=== PATIENT | female | born 1940 | race Hispanic/Latino ===

== ENCOUNTER 2019-01-26 17:02 | Emergency (ER) | payer MEDICARE ==
[~2019-01-26] VITALS: Ht 152.4 cm; Wt 63.0 kg
[~2019-01-26 17:02] MED LIST: ASPIRIN81 MG PO; DIAZEPAM5 MG PO; DIAZEPAM5 MG/1 M2 PO; HYDROCHLOROTH12.5 M1 PO; LEVOTHYROXINE75 MCG PO; OMEPRAZOLE40 MG PO; SIMVASTATIN40 MG PO
[2019-01-26] MEDS ORDERED: IOPAMIDOL 370 MG/ML 200 ML INFUS..BTL INJ ONE (17:47)
--- NOTE | 2019-01-26 18:52 | Diagnostic Imaging Report ---
History: Neck mass Comparison studies: None Technique: Axial images were obtained from the skull base to the thoracic inlet. Coronal and sagittal images reconstructed from the axial data. Intravenous contrast: None Dose modulation, iterative reconstruction, and/or weight based adjustment of the mA/kV was utilized to reduce the radiation dose to as low as reasonably achievable. Findings: Evaluation of the neck is limited due to the absence of intravenous contrast. In spite of this limitation, Soft tissues: No abnormalities. Lymph nodes: No radiographically significant adenopathy. Vessels: Cannot evaluate. Atherosclerotic calcifications of the aortic arch Glands (thyroid, parotid and submandibular): Normal in size and symmetric. No masses. Orbits: No abnormalities. Paranasal sinuses: Clear. Temporal bones: No abnormalities. Skull base and facial bones: Intact. Cervical spine: Multilevel degenerative foraminal narrowing, moderate right at C4-5; moderate bilateral at C5-6;. No other significant (moderate or severe) canal stenosis or foraminal narrowing. IMPRESSION: 1. Limited study due to lack of IV contrast. No sizable neck masses. 2. No acute neck abnormality Signed by: DR Jovan Coronado M.D. on 01/26/2019 6:49 PM
--- NOTE | 2019-01-26 19:39 | Diagnostic Imaging Report ---
History: Neck mass Comparison studies: None Technique: Axial, coronal and sagittal images from the skull base to the thoracic inlet. Coronal and sagittal images reconstructed from the axial data. Intravenous contrast: 100 cc of Isovue 300. Dose modulation, iterative reconstruction, and/or weight based adjustment of the mA/kV was utilized to reduce the radiation dose to as low as reasonably achievable. Findings: Soft tissues: No abnormalities. Masses: None. Lymph nodes: No radiographically significant adenopathy. Vessels: Arteries and veins are patent. Atherosclerotic calcifications of the aortic arch. Glands (thyroid, parotid and submandibular): Normal in size and symmetric. No masses. Orbits: No abnormalities. Paranasal sinuses: Clear. Temporal bones: No abnormalities. Skull base and facial bones: Intact. Cervical spine: Stable degenerative changes IMPRESSION: 1. No sizable neck masses or acute neck abnormality Signed by: DR Jovan Coronado M.D. on 01/26/2019 7:36 PM
== END 2019-01-26 20:04 | disposition home or self-care (01) ==
LOC: FSED 17:02
DX: K11.20 Sialoadenitis, unspecified (principal); I10 Essential (primary) hypertension; E03.9 Hypothyroidism, unspecified; E78.5 Hyperlipidemia, unspecified; M19.90 Unspecified osteoarthritis, unspecified site
CPT/HCPCS: 70486; 70491; 80053; 85025; 99284; Q9967

== ENCOUNTER → 2020-11-16 | Outpatient (CLI) | payer MEDICARE | LOC: RAD 08:30 | PROVIDERS: ATTEND Student in an Organized Health Care Education/Training Program | DX: R06.02 Shortness of breath (principal) | CPT/HCPCS: 71046 ==

== ENCOUNTER → 2024-01-04 | Outpatient (REF) | payer MEDICARE | LOC: RAD 11:16 | PROVIDERS: ATTEND Student in an Organized Health Care Education/Training Program | DX: Z87.81 Personal history of (healed) traumatic fracture (principal) ==

== ENCOUNTER → 2024-02-07 | Outpatient (REF) | payer MEDICARE | LOC: DX 09:46 | PROVIDERS: ATTEND Student in an Organized Health Care Education/Training Program | DX: M85.88 Other specified disorders of bone density and structure, other site (principal); N95.9 Unspecified menopausal and perimenopausal disorder | CPT/HCPCS: 77080 ==